=== PATIENT | female | born 1970 | race African-American/Black ===

== ENCOUNTER → 2016-07-05 | Day surgery (SDC) | payer OTHER ==
--- NOTE | 2016-07-06 10:35 | PATH ---
Surgical Pathology Report Patient Name: MCKAY MINA [facility]. Rec. #: [id number] /Age/Gender: 1970 (Age: 46) / F Account: [id number] Location: [facility] Taken: 07/05/2016 Received: 07/05/2016 Reported: 07/06/2016 Physicians: Bessie Black MD Specimen(s) Received LEFT BREAST CORE BIOPSY 3 O'CLOCK 6CM FN Clinical History Suspicious Final Diagnosis LEFT BREAST, 3:00, 6 CM FROM NIPPLE, ULTRASOUND GUIDED NEEDLE CORE BIOPSY: FOCAL ATYPICAL LOBULAR HYPERPLASIA (ALH) ARISING IN A BACKGROUND OF FIBROCYSTIC CHANGES INCLUDING COLUMNAR CELL CHANGE, STROMAL FIBROSIS, DUCTAL DILATATION, AND CYSTIC APOCRINE METAPLASIA. RARE MICROCALCIFICATIONS ARE IDENTIFIED WITHIN BENIGN DUCTAL STRUCTURES. Electronically Signed Dirk Jameson M.D. Gross Description Received in formalin, labeled "left breast biopsy 3:00, 6cmfn," are 5 ahuja-yellow, cylindrical portions of fibroadipose tissue ranging from 1.0-1.4 cm. in length and averaging 0.4 cm. in diameter. The specimen is submitted in toto in one cassette. Time to formalin fixation: 2 minutes Total formalin fixation time: Approximately 7 hours. 07/05/201607/05/2016
== END | disposition home or self-care (01) ==
LOC: FRADUS-SUR 09:13
PROVIDERS: ATTEND Surgery
PROC: 0HBU3ZX Excision of Left Breast, Percutaneous Approach, Diagnostic (ICD-10-PCS; principal; 2016-07-05)
DX: N63 Unspecified lump in breast (principal); N62 Hypertrophy of breast; N60.32 Fibrosclerosis of left breast; N60.12 Diffuse cystic mastopathy of left breast; N64.89 Other specified disorders of breast
CPT/HCPCS: 19083; 87899; 88305-TC; A4648

== ENCOUNTER 2018-03-07 08:07 | Day surgery (SDC) | payer OTHER ==
[2018-03-06 10:24] VITALS: BMI 38.0
[2018-03-07] MEDS ORDERED: ceFAZolin SODIUM 1 GM VIAL ONE (08:41)
[2018-03-07] MEDS ORDERED: HEPARIN NA (PORCINE) 5,000 UNITS/ML 1ML VIAL ONE (08:43)
[2018-03-07] MEDS ORDERED: HEPARIN NA (PORCINE) 5,000 UNITS/ML 1ML VIAL SQ ONE (11:18)
--- NOTE | 2018-03-07 11:55 | HP ---
History & Physical Update - History History: No Change - Physical Physical: No Change - Assessment Assessment: No Change - Plan Plan: No Change (No change in medical history since preop 02/20. No history of dvt/pe, use of anticoagulation.)
[2018-03-07] MEDS ORDERED: LIDOCAINE 1%/EPI 1:100000 (20 ML MULTI DOSE VIAL) ONE (12:13)
[2018-03-07] MEDS ORDERED: BUPIVACAINE HCL/PF 0.5% (5MG/ML) 10 ML VIAL ONE (12:13)
[2018-03-07] MEDS ORDERED: fentaNYL CITRATE 250 MCG/5 ML VIAL ONE (12:18)
[2018-03-07] MEDS ORDERED: ROCURONIUM BROMIDE 50 MG/5 ML VIAL ONE ×2 (12:18→14:02)
[2018-03-07] MEDS ORDERED: MIDAZOLAM HCL 2 MG/2 ML SINGLE DOSE VIAL ONE ×3 (12:18→14:44)
[2018-03-07] MEDS ORDERED: PROPOFOL 20 ML ONE ×4 (12:19→16:28)
[2018-03-07] MEDS ORDERED: ceFAZolin SODIUM 1 GM VIAL IVPB ONE (12:47)
[2018-03-07] MEDS ORDERED: NEOSTIGMINE METHYLSULFATE 0.5 MG/ML - 10 ML MDV ONE (15:42)
[2018-03-07] MEDS ORDERED: GLYCOPYRROLATE 0.2 MG/1 ML VIAL ONE (15:43)
[2018-03-07] MEDS ORDERED: ALBUTEROL SO4 8 GM HFA INHALER IH PRN (17:00)
[2018-03-07] MEDS ORDERED: VARENICLINE TARTRATE 1 MG TAB PO SCH (17:00)
[2018-03-07] MEDS ORDERED: ONDANSETRON 4 MG/2 ML VIAL IVPB PRN (17:01)
[2018-03-07] MEDS ORDERED: ACETAMINOPHEN 1000 MG/100 ML VIAL (NON FORMULARY) IVPB ONE ×2 (17:02→17:10)
[2018-03-07] MEDS ORDERED: ONDANSETRON 4 MG/2 ML VIAL IVPUSH PRN (17:02)
--- NOTE | 2018-03-07 17:03 | OP ---
Operative Note - Note: Operative Date: 03/07/18 Pre-Operative Diagnosis: Cutaneous Candidiasis Operation: Panniculectomy Findings: as dictated Implants: none Post-Operative Diagnosis: Same as Pre-op Surgeon: Doug Torres Tariff Inspector: Danny Vital Anesthesiologist/MASTER HEARTH TECHNICIAN: Leonardo Quispe Anesthesia: General Specimens Removed: pannus Estimated Blood Loss (mls): 100 (ml) Drains & Tubes with Location: Subcutaneous ROLAND drain x 2 Drains, Volume Out (mls): 200 (ml yellow urine ) Fluid Volume Replaced (mls): 2,300 (ml LR) Operative Report Dictated: Yes
--- NOTE | 2018-03-07 17:04 | SURG ---
Surgery Oncologist Note Oncologist: Danny Vital PA-C (Suzy) Date of Service: 03/07/18 Diagnosis: Cutaneous Candidiasis Procedure: Panniculectomy I was present for the entirety of the operative procedure. For further detail, please refer to operative report. Visit type - Case Type Case Type: Scheduled - Emergency Emergency Visit: No - New patient This patient is new to me today: Yes Date on this admission: 03/07/18 - Critical Care Critical Care patient: No
--- NOTE | 2018-03-07 17:04 | PROC ---
Procedure Note Procedure: Pradhan catheter placement in operating room by WALDEMAR
[2018-03-07] MEDS ORDERED: LACTATED RINGERS SOLUTION 1,000 ML IV SCH (17:15)
[2018-03-07] MEDS: LACTATED RINGERS SOLUTION 1,000 ML IV SCH (18:00)
[2018-03-07] MEDS ORDERED: CEFAZOLIN 1 GM in DEXTROSE 5%-WATER - 50 ML IVPB SCH (21:00)
--- NOTE | 2018-03-07 21:18 | OP ---
DATE OF OPERATION: 03/07/2018 TITLE OF PROCEDURE: Panniculectomy with ventral hernia repair. PREOPERATIVE DIAGNOSIS: Panniculus. POSTOPERATIVE DIAGNOSES: Excessive pannus with recurrent fungal infections and incidental finding of a ventral supraumbilical hernia. ATTENDING SURGEON: Doug Torres MD CHIROPRACTOR ASSISTANT: WALDEMAR Hassan The patient is seen in the holding area and marked in preparation for the panniculectomy. All risks, benefits, and alternatives to the procedure are discussed, understood, and agreed to proceed. The patient is given 5000 units of subcutaneous heparin preoperatively. She is counseled on all risks, benefits, and alternatives to the procedure, understands, and agrees to proceed. PROCEDURE: She is placed in a supine position, pillows placed beneath the knees. Pradhan catheter is placed. All points are carefully padded. Two grams of Ancef were given preoperatively. She is prepped and draped in standard surgical fashion. A timeout was called; patient, procedure, side, and sites are verified. At this point, an incision is made along the infrapannicular crease. Dissection carried down to the level of the abdominal fascia. Dissection is then carried along the abdominal wall fascia, ligating perforating blood vessels to the level of the umbilicus. The umbilicus is circumcised on a fibrofatty stalk, developed down to the abdominal wall fascia. A very small, supraumbilical, midline elevation is performed. At this point, this identifies a supraumbilical hernia, which is freed from the fascia and the hernia contents, fat only, are sent for pathology. The defect is closed with 2 separate [id number] No. 1 Prolene sutures, after which the wound was copiously irrigated. The excess skin and fat are excised. Closure is then performed over 2 size 19 round Saurabh drains, secured with 2-0 silk drain sutures. Closure is with a series of 0 Vicryl suture within the Kesha layer fascia. Skin is then closed with minimal tension with a series of interrupted, buried, deep dermal 3-0 Monocryl suture; followed by a running V-Loc of middermal 3-0 Monocryl suture; followed by several interrupted 4-0 nylon sutures. Steri-Strips are applied. All tissues are pink and viable. The umbilicus is translocated through an oval pattern defect in the pannus flap and it is secured with a series of interrupted, buried, deep dermal 3-0 Monocryl suture; followed by a running 5-0 nylon suture. Gauze, ABDs, Steri-Strips, and Hypafix tape are used as dressings. An abdominal binder is applied. Drains are placed to bulb suction. Patient transferred to recovery without complication. An x-ray was performed at the end of the case, which showed no foreign body. Bessie [id number]
[2018-03-07] MEDS: oxyCODONE HCL 5 MG TABLET PO PRN (21:24)
[2018-03-07] MEDS ORDERED: CEFAZOLIN 1 GM/D5W 1 GM/50 ML BAG IVPB SCH ×2 (21:29→22:00)
[2018-03-07] MEDS: morphine SULFATE 4 MG/ML VIAL IVPUSH PRN (23:58)
[2018-03-08] MEDS: LACTATED RINGERS SOLUTION 1,000 ML IV SCH ×2 (01:48→11:52)
[2018-03-08] MEDS: oxyCODONE HCL 5 MG TABLET PO PRN ×2 (01:48→11:45)
[2018-03-08] MEDS: CEFAZOLIN 1 GM/D5W 1 GM/50 ML BAG IVPB SCH ×3 (03:47→16:08)
[2018-03-08] MEDS: morphine SULFATE 4 MG/ML VIAL IVPUSH PRN (04:42)
--- NOTE | 2018-03-08 07:35 | PN ---
Progress Note (short form) - Note Progress Note: VSS AF All tissues viable ROLAND's thin and functioning Patient refusing to get OOB, combative with nurses I have insisted that she get OOB now, improve IS She will have BLE duplex today and discharge later this PM.
[2018-03-08] MEDS ORDERED: HEPARIN NA (PORCINE) 5,000 UNITS/ML 1ML VIAL SQ SCH (09:00)
[2018-03-08 15:38] VITALS: BP 125/90; PULSE 81; TEMP 98.8
--- NOTE | 2018-03-14 18:18 | PATH ---
Surgical Pathology Report Patient Name: MCKAY MINA [facility]. Rec. #: [id number] /Age/Gender: 1970 (Age: 47) / F Account: [id number] Location: AMBULATORY SURG Taken: 03/07/2018 Received: 03/08/2018 Reported: 03/14/2018 Physicians: Doug Torres Specimen(s) Received ABDOMINAL PANNUS Clinical History Cellulitis Final Diagnosis ABDOMINAL PANNUS, PANNICULECTOMY: MATURE FIBROADIPOSE TISSUE. SKIN WITHOUT SIGNIFICANT PATHOLOGIC FINDINGS. Electronically Signed Ashley Dowling M.D. Gross Description Received in formalin labeled "abdominal pannus," is a 2989 g, 37.0 x 25.0 x 5.5 cm aggregate of 2 ahuja-brown, triangular, unoriented portions of skin with underlying soft tissue. The epidermal surface is unremarkable. Sectioning reveals unremarkable yellow, lobulated adipose tissue. No discrete lesions are identified. Investment Trader sections are submitted in one cassette. 03/08/2018 [facility]03/08/2018
== END 2018-03-08 18:29 | disposition home health service (06) ==
LOC: JASUSAT 08:07 → J8W 18:28 → JASUSAT 03-08 18:29
PROVIDERS: ATTEND Plastic Surgery
PROC: 0WQF0ZZ Repair Abdominal Wall, Open Approach (ICD-10-PCS; 2018-03-07)
PROC: 0JB80ZZ Excision of Abdomen Subcutaneous Tissue and Fascia, Open Approach (ICD-10-PCS; principal; 2018-03-07 10:00)
DX: E65 Localized adiposity (principal); K42.9 Umbilical hernia without obstruction or gangrene
CPT/HCPCS: 74018-TC-FY; 84703; 88305-TC; 93970-TC; 94760; J0131; J1644

== ENCOUNTER 2022-07-09 11:40 | Emergency (ER) | payer OTHER ==
[2022-07-09 11:46] VITALS: BP 124/85; PULSE 86; RESP 18; TEMP 97.8; BMI 31.8
[2022-07-09] MEDS ORDERED: KETOROLAC TROMETHAMINE 30 MG/1 ML VIAL IM ONE (12:59)
[2022-07-09] MEDS ORDERED: ACETAMINOPHEN 500 MG TABLET (FP) PO ONE (12:59)
[2022-07-09] MEDS ORDERED: diazePAM 5 MG TABLET PO ONE (12:59)
[2022-07-09] MEDS ORDERED: LIDOCAINE 5% TOPICAL PATCH TP ONE (12:59)
[2022-07-09] MEDS ORDERED: ACETAMINOPHEN 500 MG TABLET (FP) ONE (13:01)
[2022-07-09] MEDS ORDERED: KETOROLAC TROMETHAMINE 30 MG/1 ML VIAL ONE (13:01)
[2022-07-09] MEDS ORDERED: LIDOCAINE 5% TOPICAL PATCH ONE (13:01)
[2022-07-09] MEDS ORDERED: diazePAM 5 MG TABLET ONE (13:01)
[2022-07-09] MEDS ORDERED: LIDOCAINE PATCH REMOVAL MC SCH (22:00)
== END 2022-07-09 14:18 | disposition home or self-care (01) ==
LOC: JER 11:40 → JERFT 11:40
PROC: 3E0233Z Introduction of Anti-inflammatory into Muscle, Percutaneous Approach (ICD-10-PCS; principal; 2022-07-09)
DX: M54.50 Low back pain, unspecified (principal); V49.40XA Driver injured in collision with unspecified motor vehicles in traffic accident, initial encounter; Y93.I9 Activity, other involving external motion
CPT/HCPCS: 72100-TC-FY; 99284-25

== ENCOUNTER 2023-08-16 04:12 | Day surgery (SDC) | payer OTHER ==
[2023-08-10 09:51] VITALS: BMI 32.2
[2023-08-16] MEDS ORDERED: METOCLOPRAMIDE HCL INJECTION 10 MG/2 ML VIAL ONE (08:42)
[2023-08-16] MEDS ORDERED: DEXAMETHASONE SOD PHOSPHATE 4 MG/1 ML VIAL ONE (08:42)
[2023-08-16] MEDS ORDERED: SODIUM CHLORIDE 0.9% P/F 10 ML VIAL IJ ONE (08:42)
[2023-08-16] MEDS ORDERED: ceFAZolin SODIUM 1 GM VIAL ONE (08:42)
[2023-08-16] MEDS ORDERED: KETOROLAC TROMETHAMINE 30 MG/1 ML VIAL ONE (08:42)
[2023-08-16] MEDS ORDERED: ONDANSETRON 4 MG/2 ML VIAL ONE (08:42)
[2023-08-16] MEDS ORDERED: ONDANSETRON 4 MG/2 ML VIAL IVPUSH PRN (09:49)
[2023-08-16] MEDS ORDERED: oxyCODONE HCL 5 MG TABLET PO PRN (09:49)
[2023-08-16] MEDS ORDERED: LACTATED RINGERS SOLUTION 1,000 ML IV SCH (10:00)
[2023-08-16] MEDS ORDERED: ACETAMINOPHEN INJECTION 100 ML IVPB ONE (10:25)
[2023-08-16] MEDS ORDERED: PROPOFOL 20 ML ONE ×2 (10:28→11:52)
[2023-08-16] MEDS ORDERED: FENTANYL CITRATE/PF 50 MCG/ML VIAL ONE ×3 (10:28→12:26)
[2023-08-16] MEDS ORDERED: MIDAZOLAM HCL 2 MG/2 ML SINGLE DOSE VIAL ONE (10:28)
[2023-08-16] MEDS ORDERED: LIDOCAINE HCL/PF 2% SDV 5ML VIAL ONE (10:30)
[2023-08-16] MEDS: ceFAZolin 2 GRAM PREMIX BAG IVPB ONE (10:30)
[2023-08-16] MEDS ORDERED: ALBUTEROL SO4 HFA INHALER IH ONE (10:32)
[2023-08-16] MEDS ORDERED: oxyCODONE HCL 5 MG TABLET ONE (13:03)
[2023-08-16] MEDS: oxyCODONE HCL 5 MG TABLET PO ONE (13:05)
[2023-08-16 14:07] VITALS: BP 128/76; PULSE 68; RESP 16; TEMP 97.2
== END 2023-08-16 15:05 | disposition home or self-care (01) ==
LOC: JASU-SURG 04:12
PROVIDERS: ATTEND Surgery Vascular Surgery
PROC: 06BQ0ZZ Excision of Left Saphenous Vein, Open Approach (ICD-10-PCS; 2023-08-16)
PROC: 06BQ0ZZ Excision of Left Saphenous Vein, Open Approach (ICD-10-PCS; principal; 2023-08-16 10:00)
DX: I80.02 Phlebitis and thrombophlebitis of superficial vessels of left lower extremity (principal)
CPT/HCPCS: 81025; 88304-TC; 94760; J0131